=== PATIENT | male | born 1960 | race Caucasian/White ===

== ENCOUNTER 2021-04-28 14:56 | Outpatient (CLI) | payer BC, SELFPAY ==
--- NOTE | 2021-04-28 14:45 | DI.RAD_ITS ---
Exam(s) XR KNEE RT 4V AP,LAT,ALEIDA,PAT EXAM: XR KNEE RT 4V AP,LAT,ALEIDA,PAT CLINICAL HISTORY: pain. TECHNIQUE: 2D digital imaging was performed. COMPARISON: No exams were available for comparison FINDINGS: No evidence of acute fracture. Small joint effusion. There are advanced degenerative changes in med ial compartment with [id number] apposition of the medial compartment on the weight-bearing view. A lso marginal osteophytes. Moderate degenerative changes in the lateral compartment. Advanced degene rative changes in the patellofemoral compartment. 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 The largest of these calcifications measures approximately 1.7 by 1.3 cm. IMPRESSION: DATA REPOSITORY: RADIATION DOSE DELIVERED:
--- NOTE | 2021-04-28 14:45 | DI.RAD_ITS ---
Exam(s) XR HIP RT COMPLETE AP PELVIS EXAM: XR HIP RT COMPLETE AP PELVIS CLINICAL HISTORY: pain in knee. TECHNIQUE: 2D digital imaging was performed. COMPARISON: No exams were available for comparison FINDINGS: No evidence pelvic hip fracture. No significant hip joint space narrowing. No osseous lesions. IMPRESSION: DATA REPOSITORY: RADIATION DOSE DELIVERED:
== END 2021-04-28 14:57 | disposition home or self-care (01) ==
LOC: DIORS 14:57
PROVIDERS: Visit Provider Physician Assistant Surgical
DX: M25.561 Pain in right knee (principal); M25.461 Effusion, right knee; M17.11 Unilateral primary osteoarthritis, right knee; M71.21 Synovial cyst of popliteal space [Baker], right knee; M25.551 Pain in right hip
CPT/HCPCS: 73502; 73564

== ENCOUNTER 2021-06-20 11:32 | Outpatient (CLI) | payer BC, SELFPAY ==
--- NOTE | 2021-06-20 11:00 | DI.RAD_ITS ---
Exam(s) XR KNEE RT 1V EXAM: XR KNEE RT 1V CLINICAL HISTORY: right knee DJD. TECHNIQUE: 2D digital imaging was performed of the right knee. One views obtained. Lateral views w ere obtained. COMPARISON: CR XR KNEE RT 4V AP,LAT,ALEIDA,PAT from 04/28/2021 CR XR KNEE RT 4V AP,LAT,ALEIDA,PAT from 04/28/2021 FINDINGS: This is a limited examination with a single lateral view with a template bowel. BONES: Alignment of the knee is anatomic on the single lateral image. No bony destructive lesion is seen. Enthesophyte is seen at the inferior patella. JOINTS: Degenerative changes are seen in the patellofemoral joint with joint space narrowing and talia articular spurring present. There again seen multiple calcific densities in the soft tissues posteri or to the knee. SOFT TISSUE: Normal. IMPRESSION: Stable appearance of the knee on the single lateral image. DATA REPOSITORY: RADIATION DOSE DELIVERED:
--- NOTE | 2021-06-20 11:00 | DI.RAD_ITS ---
Exam(s) XR STANDING ALIGNMENT EXAM: XR STANDING ALIGNMENT CLINICAL HISTORY: right knee DJD. TECHNIQUE: 2D digital imaging was performed. COMPARISON: CR XR KNEE RT 4V AP,LAT,ALEIDA,PAT from 04/28/2021 CR XR KNEE RT 4V AP,LAT,ALEIDA,PAT from 04/28/2021 FINDINGS: BONES: There are degenerative changes seen in the hips bilaterally. Moderately severe degenerative c hanges are seen in the right knee with joint space narrowing and periarticular spurring. The finding s are most marked in the medial femoral tibial joint space. There again seen osseous densities poste rior to the knee. These may represent loose bodies. There are mild degenerative changes seen in the left knee with joint space narrowing and periarticular spurring present. There are few tiny densiti es seen posterior to the medial joint space of the left knee. Again these may be loose bodies. The ankles are well maintained. No significant leg length discrepancy is seen. SOFT TISSUE: Normal. IMPRESSION: Degenerative changes in the knees bilaterally, right greater than left. DATA REPOSITORY: RADIATION DOSE DELIVERED:
== END 2021-06-20 11:33 | disposition home or self-care (01) ==
LOC: DIORS 11:32
PROVIDERS: Visit Provider Physician Assistant
DX: M17.11 Unilateral primary osteoarthritis, right knee (principal)
CPT/HCPCS: 73560; 77073

== ENCOUNTER 2021-06-30 03:59 | Outpatient (CLI) | payer BC, SELFPAY ==
[2021-07-01 20:46] LABS: COVID-19 RT-PCR UVMMC Result Negative (Negative)
== END 2021-06-30 04:00 | disposition home or self-care (01) ==
LOC: LBO 03:59
PROVIDERS: PCP Internal Medicine; Visit Provider Student in an Organized Health Care Education/Training Program
DX: Z20.822 Contact with and (suspected) exposure to COVID-19 (principal)
CPT/HCPCS: 87635; U0003

== ENCOUNTER 2021-06-30 04:04 | Outpatient (CLI) | payer BC, SELFPAY ==
[2021-06-30 11:18] LABS: HGB 15.8 g/dL (13.5-17.5); MCH 29.7 pg (27.0-33.0); MCHC 34.3 % (32.0-36.0); MCV 86.5 fL (80-95); MPV 10.7 fL (8.0-11.0); Platelet Count 175 10^3/uL (130-400); RBC 5.32 10^6/uL (4.36-5.78); RDW 12.8 % (11.8-14.1); RDW-SD 39.9 fL; WBC 8.07 10^3/uL (4.4-10.8)
[2021-06-30 11:48] LABS: Anion Gap 7.5 mmol/L (3-11); BUN 24 mg/dL (7-18); CO2 29.5 mmol/L (21.0-32.0); CREATININE 0.8 mg/dL (0.70-1.30); Calcium 9.2 mg/dL (8.5-10.1); Chloride 102 mmol/L (98-107); Glucose 146 mg/dL (74-106); Potassium 3.8 mmol/L (3.5-5.1); Sodium 139 mmol/L (136-145)
[2021-06-30 11:50] LABS: Hemoglobin A1C 6.2 % (<5.7)
== END 2021-06-30 04:05 | disposition home or self-care (01) ==
LOC: LBO 04:04
PROVIDERS: PCP Internal Medicine; Visit Provider Student in an Organized Health Care Education/Training Program
DX: M17.11 Unilateral primary osteoarthritis, right knee (principal); Z01.818 Encounter for other preprocedural examination
CPT/HCPCS: 36415; 80048; 85027; 83036

== ENCOUNTER 2021-07-02 07:05 | Day surgery (SDC) | payer BC, SELFPAY ==
[2021-07-02] VITALS (9 sets, daily range): BP systolic 133–154; BP diastolic 71–99; PULSE 56–69; RESP 16–25; TEMP 36–36.8; O2SAT 93–97; BMI 39.2
--- NOTE | 2021-07-02 06:33 | W.PM.DSUDISC ---
Discharge Plan Disposition Patient Disposition: HOME Condition: Stable Discharge Details Reason For Visit: Right TKA Attending Provider: Chivo Heard Primary Care Provider: Ju Browning Home Meds and New Rx's Prescriptions: New celecoxib [Celebrex] 200 mg capsule 200 mg PO BID Qty: 60 RF: 0 gabapentin 300 mg capsule 300 mg PO QHS Qty: 14 RF: 0 acetaminophen 500 mg capsule 1,000 mg PO Q8H PRN PRNQty: 90 RF: 0 pantoprazole [Protonix] 40 mg tablet,delayed release (DR/EC) 40 mg PO DAILY Qty: 30 RF: 0 aspirin 81 mg tablet,delayed release (DR/EC) 81 mg PO BID Qty: 60 RF: 0 Continued amlodipine 10 mg tablet 10 mg PO DAILY RF: 0 chlorthalidone 25 mg tablet 25 mg PO DAILY RF: 0 escitalopram oxalate 20 mg tablet 20 mg PO DAILY RF: 0 naltrexone 50 mg tablet 50 mg PO DAILY PRNRF: 0 simvastatin 20 mg tablet 20 mg PO QPM RF: 0 trazodone 50 mg tablet 50 mg PO DAILY RF: 0 Trulicity 0.75 mg/0.5 mL pen injector 0.75 mg subcut QWEEK RF: 0 Discharge Instructions Additional Instructions: Total Knee Discharge Instructions Activity: The most important activity is to walk. You should try to take short walks a few times a day. It is important that when resting you work on keeping the knee straight. Avoid putting a pillow behind the knee as this will encourage flexion. Work on range of motion exercises as provided by Physical Therapy. If you have the [employer] bike coming, this will be your primary tool for exercise after the knee replacement. You should use it and follow the directions for the knee. Utilize the other exercises sparingly based on your symptoms. - Start outpatient physical therapy within 2 weeks. - You should wear the ANTONIA hose on both legs for 2 weeks. You may remove these at night. You may also use any compression sock in place of the ANTONIA hose. - Utilize [employer] to review exercises, see videos on exercises and obtain basic information pertaining to your surgery and your recovery. Dressing: Remove the Anoop wrap by 2 days after your surgery and put on the ANTONIA stocking given to you from the hospital. Keep the surgical dressing (underneath the ANOOP wrap) in place for at least one week. After the first week it may be removed and replaced with light gauze and tape or nothing. The wound and dressing may get wet after 3 days but avoid soaking the dressing or otherwise it will need to be changed. Many people prefer covering the dressing with cling wrap (saran wrap) to minimize it from getting soaked. If it gets wet, just pat dry. If it starts to peel off then it will need to be changed. Medications: - You should take Tylenol and anti-inflammatory Celebrex as your primary pain control medications. If the Celebrex is too expensive or not covered, please call the office for another alternative (Advil/Ibuprofen or Naproxen/Aleve) - You have been prescribed a stronger pain medication Oxycodone for breakthrough pain, take as needed as prescribed. - You have also been prescribed a stomach acid reduction agent Pantoprozole to help reduce stomach acid and reflux. - You have been prescribed Gabapentin to take at night for restlessness and nerve pain. - You will be taking Aspirin 81mg twice a day for DVT prevention unless instructed otherwise. - If you have constipation you should take Colace or Miralax (both [id number]). It takes most people 3-4 days to have a bowel movement. Follow-up: 2 weeks If you have any acute concerns or questions, please do not hesitate to contact the office at [phone]. You may contact Dr. Heard with any questions after hours through the hospital at [phone] or on his cell phone at [phone]. Referrals: Chivo Heard MD [ [facility] STAFF PHYSICIAN] - Equipment/Supplies: Walker Activity:: Activity as Tolerated Remove Dressings/Wound Care:: Do Not Remove Shower/Bathe:: 72 hours Diet:: As Tolerated Discharge Orders Discharge Orders: Discharge Order (Routine); Ordered 07/02/21 Ordered By: Dulce Aldrich DS: Diagnosis Discharge Diagnosis (1) Osteoarthritis of right knee: Status: Chronic
[2021-07-02] MEDS: Acetaminophen 500 MG TAB 1000 MG PO (08:47)
[2021-07-02] MEDS: Gabapentin 300 MG CAP PO (08:48)
[2021-07-02] MEDS: Celecoxib 200 MG CAP 400 MG PO (08:48)
[2021-07-02] MEDS: Lactated Ringers 1,000 ML 80 ML IV (09:00)
--- NOTE | 2021-07-02 09:14 | W.ANESPRE ---
General Info Date of Service Date Performed: 07/02/21 Height: 5 ft 11.75 in Weight: 130.181 kg Body Mass Index (BMI): 39.2 Surgical Procedure: Operation Date: 07/02/21 09:55 Proposed Procedures Side Surgeon p (R) Knee Total Arthroplasty Right Chivo Heard MD Meds Allergies and Home Medications Allergies Allergy/AdvReac Type Severity Reaction Status Date / Time No Known Allergies Allergy Verified 07/02/21 08:09 Home Medication Medication Instructions Recorded amlodipine 10 mg tablet 10 mg PO DAILY 06/20/21 chlorthalidone 25 mg tablet 25 mg PO DAILY 06/20/21 dulaglutide 0.75 mg/0.5 mL 0.75 mg SUBCUT QWEEK 06/20/21 subcutaneous pen injector escitalopram oxalate 20 mg tablet 20 mg PO DAILY 06/20/21 naltrexone 50 mg tablet 50 mg PO DAILY PRN 06/20/21 simvastatin 20 mg tablet 20 mg PO QPM 06/20/21 trazodone 50 mg tablet 50 mg PO DAILY 06/20/21 acetaminophen 1,000 mg PO Q8H PRN PRN #90 cap 07/02/21 aspirin 81 mg PO BID #60 tab 07/02/21 celecoxib [Celebrex] 200 mg PO BID #60 cap 07/02/21 gabapentin 300 mg PO QHS #14 cap 07/02/21 pantoprazole [Protonix] 40 mg PO DAILY #30 tab 07/02/21 Current Visit Medications: Current Medications Generic Name Dose Route Start Last Admin Trade Name Freq PRN Reason Stop Dose Admin Acetaminophen 1,000 mg 07/02/21 06:00 07/02/21 08:47 Acetaminophen 500 Mg Tab PO 07/02/21 16:00 1,000 mg PREOP GIANA Administration Acetaminophen 1,000 mg 07/02/21 08:30 Acetaminophen 500 Mg Tab PO TID GIANA Aspirin 81 mg 07/02/21 20:00 Aspirin E.C. 81 Mg Tabec PO BID GIANA Celecoxib 400 mg 07/02/21 06:00 07/02/21 08:48 Celecoxib 200 Mg Cap PO 07/02/21 16:00 400 mg PREOP GIANA Administration Celecoxib 200 mg 07/02/21 08:30 Celecoxib 200 Mg Cap PO BID GIANA Docusate Sodium 100 mg 07/02/21 06:31 Docusate Sodium 100 Mg Cap PO BID PRN PRN Constipation Gabapentin 300 mg 07/02/21 06:00 07/02/21 08:48 Gabapentin 300 Mg Cap PO 07/02/21 16:00 300 mg PREOP GIANA Administration Gabapentin 300 mg 07/02/21 22:00 Gabapentin 300 Mg Cap PO HS GIANA Hydromorphone HCl 0.5 mg 07/02/21 06:31 Hydromorphone 2 Mg/Ml Vial IVP Q2H PRN PRN Tranexamic Acid 1,000 mg/ 60 mls @ 360 mls/hr 07/02/21 06:00 Sodium Chloride IVPB 07/02/21 16:00 PREOP GIANA Tranexamic Acid 1,000 mg/ 60 mls @ 360 mls/hr 07/02/21 06:00 Sodium Chloride IVPB 07/02/21 16:00 DIRECTED GIANA Cefazolin Sodium 3,000 mg/ 100 mls @ 200 mls/hr 07/02/21 06:00 Sodium Chloride IVPB 07/02/21 16:00 PREOP GIANA Ringer's Solution 1,000 mls @ 80 mls/hr 07/02/21 06:00 07/02/21 09:00 IV 07/04/21 23:59 80 mls/hr INFUSION GIANA Administration Cefazolin Sodium/Dextrose 1 gm in 50 mls @ 100 mls/hr 07/02/21 16:00 Ancef Duplex IVPB 07/03/21 08:29 Q8H GIANA IV Miscellaneous Supplies 1 each 07/02/21 06:00 Iv Access IV 07/04/21 23:59 DIRECTED GIANA Ondansetron HCl 4 mg 07/02/21 06:31 Ondansetron 4 Mg/2 Ml Vial IVP Q6H PRN PRN Nausea Oxycodone HCl 0 mg 07/02/21 06:31 Oxycodone 5 Mg Tab PO Q3H PRN PRN Pain Pantoprazole Sodium 40 mg 07/03/21 07:30 Pantoprazole 40 Mg Tabcr PO DAILY@0730 GIANA Sodium Chloride 0 ml 07/02/21 06:00 Normal Saline Flush 10 Ml Syr IV 07/04/21 23:59 PRN PRN Sodium Chloride 0 ml 07/02/21 06:00 Normal Saline 10 Ml Vial IJ 07/04/21 23:59 DIRECTED PRN Sterile Water 0 ml 07/02/21 06:00 Water,Injection,Sterile 10 Ml Vial IJ 07/04/21 23:59 DIRECTED PRN PFS Active Problems Active Problems: Problem Status Onset Code Anxiety F41.9 Hypertension I10 Hyperlipidemia E78.5 Diabetes mellitus E11.9 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 Osteoarthritis of right knee M17.11 Tobacco Smoking/Tobacco Use Status: Never Alcohol Alcohol Intake: current Alcohol intake frequency: a few times a month Alcohol type: beer Details: intermittent - none for several weeks Substance Use Substance use: Never Substance use type: does not use Vital Signs and Lab Results Vital Signs Most Recent Vital Signs in EMR: Most Recent Vital Signs Temp Pulse Resp BP Pulse Ox 36.6 C 67 16 154/96 H 95 07/02/21 08:18 07/02/21 08:18 07/02/21 08:18 07/02/21 08:18 07/02/21 08:18 Point of Care Results Point of Care Results: Finger Stick Blood Glucose 150 07/02/21 08:47 Lab Results Blood Type / Crossmatch: No Data to Display Complete Blood Count: White Blood Count 8.07 10^3/uL (4.4-10.8) 06/30/21 10:58 06/30/21 Red Blood Count 5.32 10^6/uL (4.36-5.78) 06/30/21 10:58 06/30/21 Hemoglobin 15.8 g/dL (13.5-17.5) 06/30/21 10:58 06/30/21 Hematocrit 46.0 % (40.0-50.0) 06/30/21 10:58 06/30/21 Platelet Count 175 10^3/uL (130-400) 06/30/21 10:58 06/30/21 Complete Metabolic Panel: Sodium Level 139 mmol/L (136-145) 06/30/21 10:58 06/30/21 Potassium Level 3.8 mmol/L (3.5-5.1) 06/30/21 10:58 06/30/21 Chloride Level 102 mmol/L (98-107) 06/30/21 10:58 06/30/21 Carbon Dioxide Level 29.5 mmol/L (21.0-32.0) 06/30/21 10:58 06/30/21 Blood Urea Nitrogen 24 mg/dL (7-18) H 12/27/21 10:58 06/30/21 Creatinine 0.8 mg/dL (0.70-1.30) 06/30/21 10:58 06/30/21 Estimated GFR/1.73 m2 >= 60.00 (mL/min/1.73m2) 06/30/21 10:58 06/30/21 Calcium Level 9.2 mg/dL (8.5-10.1) 06/30/21 10:58 06/30/21 Glucose Level 146 mg/dL (74-106) H 06/30/21 10:58 06/30/21 Hemoglobin A1c 6.2 % (<5.7) H 06/30/21 10:58 06/30/21 Liver Function Panel: No Data to Display Coagulation Panel: No Data to Display Cardiac Panel: No Data to Display Arterial Blood Gas: No Data to Display Venous Blood Gas: No Data to Display Pancreas Panel: No Data to Display Thyroid Panel: No Data to Display Infectious Disease: Coronavirus (COVID-19)(PCR) Negative (Negative) 06/30/21 12:10 06/30/21 Blood Cultures: No Data to Display Toxicology Panel: No Data to Display Anesthesia Assessment and Plan Anesthesia History Personal History: No History of Anesthesia Complications Family History: No Family History of Anesthesia Complications Exercise Tolerance Exercise Tolerance: Metabolic Equivalents>4 Pertinent Negatives Pertinent Negatives: No Symptoms of GERD, No Major Cardiovascular Symptoms or Complaints, No Major Pulmonary Symptoms or Complaints and No History of CVA/TIA Cardiac & Pulmonary Exam Cardiac Exam: Normal S1/S2 Heart Sounds Pulmonary Exam: Clear Bilateral Breath Sounds Implantable Cardiac Device Does patient have a Pacemaker or an ICD?: No Airway Exam Known Difficult Airway: No Mallampati Class: 3 Mouth Opening: Normal (> 3cm) Thyromental Distance: Greater than 3 cm Neck Range of Motion: Full ROM Neck Circumference: Normal Teeth Condition: Normal Dentition ASA Classification ASA Score: ASA 3 Emergency Case?: No NPO Status NPO Status: NPO Clears >2 hours, Solids >8 hours Anesthesia Plan Resuscitation Status: Full Code Anesthesia Technique: Spinal Anesthesia Airway Planned: Natural Airway Pain Management: Surgeon and patient request nerve block Monitors Used: Standard Monitors
[2021-07-02] MEDS: ceFAZolin 3,000 MG in Normal Saline 100 ML 200 MG IVPB (09:47)
--- NOTE | 2021-07-02 10:18 | W.ANESNERVE ---
Nerve Block Single Injection Procedure Date and Time Date Performed: 07/02/21 Procedure Start: 09:34 Location Where Procedure Performed Procedure Location: Day Surgery Unit Reason Performed: Postoperative Analgesia Requesting Provider: Chivo Heard Timeout Performed Timeout Performed: Yes Monitoring Used ECG, Blood Pressure, SpO2 and See EMR for corresponding vital signs Sterility Sterility: Hand Hygiene, Surgical Cap, Surgical Mask, Sterile Gloves, Eye Protection and Chlorhexidine Sedation Given During Procedure Sedation Given (Indicate Dose Given): Versed IV Dose:: 2 mg Patient Mental Status Patient Mental Status: Sedate with meaningful communication Nerve Block 1st Nerve Block: Laterality: Right Block Type: Adductor Canal Needle / Catheter Used: 100mm SonoPlex II Local Anesthetic Bolus (Indicate Dose Given): Lidocaine used for local infiltration of skin, Injected in 3-5ml increments after negative blood aspiration and Bupivacaine 0.25% Dose:: 30 ml Additives (Indicate Dose Given): None Ultrasound: Sterile probe cover and gel used Ultrasound Image Saved?: Yes Nerve Stimulator: Not Used Paresthesia: None Procedure Tolerated: No Complications Procedure Outcome: Successful Performed By: Micheline Awad
[2021-07-02] MEDS: Ketorolac 30 MG/ML VIAL (10:39)
[2021-07-02] MEDS: Bupivacaine 0.25% Pres-Free 30 ML VIAL (10:39)
[2021-07-02] MEDS: Normal Saline 50 ML (10:39)
[2021-07-02] MEDS: fentaNYL 100 MCG/2 ML VIAL IVP (11:57)
--- NOTE | 2021-07-02 12:23 | W.ANESPOSTOP ---
Postoperative Evaluation Date, Time and Location Date Performed: 07/02/21 Time Performed: 12:24 Patient Location: PACU Vital Signs Most Recent Imported Vital Signs: Most Recent Vital Signs Temp Pulse Resp BP Pulse Ox 36.4 C L 56 L 17 133/90 93 07/02/21 12:12 07/02/21 12:12 07/02/21 12:12 07/02/21 12:12 07/02/21 12:12 Pain Score Most Recent Pain Score: Most Recent Pain Score Pain Level 3 07/02/21 12:12 Assessment Mental Status: Awake (Alert & Oriented to Patient Baseline) Airway and Respiratory Function: Patent airway with normal (patient baseline) respiratory exam Cardiovascular Function: Hemodynamically Stable Hydration Status: Adequately Hydrated Nausea & Vomiting: No Nausea or Vomiting Pain: Pt. Denies Any Pain Peripheral Nerve Block: Regional nerve block not resolved at time of post operative discharge (Adductor canal still in place and appropriate )
--- NOTE | 2021-07-02 13:18 | W.PM.OP ---
Date of service: 07/02/21 Time of Service: 11:02 Operative Note Operative Note DATE OF PROCEDURE: 07/01/21 PRE-OP DIAGNOSIS: Right Knee Osteoarthritis POST-OP DIAGNOSIS: same PROCEDURE: Right Total Knee Replacement SURGEON: Chivo Heard VENTILATION EQUIPMENT TENDER: Dulce Aldrich ANESTHESIA TYPE: Spinal Refer to Anesthesia Record ESTIMATED BLOOD LOSS: 100 PATHOLOGY: none sent TOURNIQUET TIME: 0 COMPLICATIONS: None Patient was transported to: PACU Patient's condition: stable Implants: 1. Depuy Attune Cementless Cruciate Retaining Femoral Component, Size 8 2. Depuy Attune Cementless Rotating Platform Tibial Component, Size 8 3. Depuy Attune 8x6 CR/RP Poly 4. Depuy Attune Patellar Component, Size 41 Indications: I have seen Mitchell in clinic for symptoms of knee arthritis, confirmed with radiographic findings. He has exhausted nonoperative methods and was having significant limitations in daily function and desired better function and less pain. I discussed the technical details of a knee replacement. I explained the risks of the procedure to include, but not limited to, bleeding, infection, pain, stiffness, fracture, damage to nerves and vessels, damage to muscles and tendons, loosening, need for repeat procedure, blood clot and cardiopulmonary demise. Despite these risks, Mitchell elected to proceed. Findings: There was significant signs of arthritis throughout the knee with large osteophytes. Procedure Description: Mitchell was greeted in the preoperative holding area where the correct side was identified and marked. The consent was reviewed with the patient and signed. The history and physical was updated. All questions were answered. Preoperative medications were administered: Acetaminophen 1000mg, Celebrex 400mg, and Gabapentin 300mg. An adductor canal block was then administered by the anesthesia team in the PACU. Eder was taken back to the operating room. A spinal anesthestic was then administered. The patient was placed into the supine position on the operating room table. A nonsterile tourniquet was placed high onto the leg but only used for cementing. Posts were placed for positioning during the procedure. All bony prominences were well padded. Prophylactic antibiotics in the form of Cefazolin were administered. 1g of Tranxemic Acid was given intravenously within 30 minutes of incision. The right leg was then prepped with Chloraprep and draped in a standard fashion with impervious stockinette. A second prep with Chloraprep was performed prior to application of Iodine impregnated skin protection. A timeout to confirm correct identity, side and site, procedure, allergies, anesthesia, and medical concerns was performed. With the knee in some flexion, a midline incision was made overlying the knee. Full thickness skin flaps were raised once the extensor mechanism was encountered. These were raised medially and laterally. Any bleeding was controlled with electrocautery. Once the extensor mechanism was fully exposed, a medial parapatellar arthrotomy was performed in a flexed position. All bleeding from the arthrotomy and the geniculate arteries was coagulated. A medial subperiosteal peel was performed with electrocautery to the midcoronal plane. Due to the significant varus deformity the entire medial tibial plateau was exposed. The fat pad was removed while keeping the patellar tendon protected. The anterior distal femur synovium was removed for later visualization. The ACL and PCL were resected and the anterior horn of the lateral meniscus was transected. The knee was then flexed with the patella everted. Large osteophytes from the tibia were removed. Large osteophytes from the femur were removed. Using a step drill, and based on preoperative templating, the femoral canal was entered. This was done with a step drill without any difficulty. The intramedullary distal femoral cut guide was inserted, set to a 5 degree valgus cut and 9mm cut thickness. The distal femoral cut guide was then held in position and pinned. With the soft tissues protected, the distal cut was performed. This was passed over a few times to ensure a planar cut. I then turned attention to the tibia. The extramedullary guide was placed onto the leg. The distal aspect was slid medial to adjust for position of center of ankle and stay in line with shaft of the tibia. Approximately 3-5 degrees of posterior slope was kept in the proximal cutting guide. The center of the guide was aligned with the PCL. The stylus was used to assess cut thickness. The medial side, most involved side, was set for a 4mm cut, corresponding to 9mm laterally. This was then held in position and pinned into place with 2 additional pins and a cross pin for stability. The medial and lateral collateral ligaments were protected and the cut was performed. With this completed, it was assessed and noted to be of appropriate dimensions. The guide was removed. A spacer block was inserted and the knee was brought into extension. The 6mm spacer block provided full extension, without hyperextension and with stability of both the medial and lateral collateral ligaments was assessed. The pins from the femur and the tibia were then removed. The distal femur was then sized. The anterior stylus was placed onto the lateral ridge of the anterior femur. This indicated a size 8 femur. The external rotation of the guide was adjusted to 3 degrees to match the epicondylar axis, perpendicular to [place]?s line. The 4-in-1 cutting guide was the placed. The posterior medial femur cut was evaluated and appeared of good thickness. The spacer block was inserted underneath the cutting guide and stability was confirmed in 90 degrees of flexion. An archie wing was used to confirm appropriate position of the anterior cut to avoid notching. This cutting guide was ensured to be flush on the cut surface and then pinned into place with headed pins. While protecting the soft tissues, quad tendon, and collateral ligaments, the anterior and posterior cuts were performed with a saw. The central two pins were removed and the posterior and anterior chamfers were cut next. The notch-cutting guide was placed. This was pinned to lateralize the femoral component as much as possible while keeping it flush on the cut surface. This was then pinned into position. A reciprocating saw was used to make the notch cut. A rasp smoothed the cut surfaces. The medial and lateral menisci were removed. A trial femoral component was then inserted, impacted down to the cut surfaces, and the lug holes were drilled. A provisional trial tibial component was placed and the knee was brought through range of motion. There was noted to be excellent extension and flexion. There was no significant instability. The patella was tracking without thumbs. A size 6mm polyethylene component provided the best range of motion and stability with less than 2mm gapping with medial and lateral stress and full extension without significant hyperextension. The tibial cut surface was fully exposed. The tibia was then sized as a 8. The tibia had been previously marked during trialing to correspond to the center of the tibial component to help with rotation. The trial was aligned to this david, approximately rotated to the medial 1/3rd of the tibial tubercle. The trial was pinned into place. The tibia was prepared with a reamer and a keel punch and lug holes. The knee was then brought into extension and the patella was measured as 31mm. Using the patellar clamp and cut guide, this was resected to a flat surface with at least 13mm of thickness remaining. The size 41 patella fit the best. This was oriented and then clamped into position. The lugs were drilled. The trial components were removed. The final components were opened on the back table. The periosteal and capsular tissues, especially posteriorly, around the knee were then systematically injected with a periarticular cocktail consisting of 50cc 0.25% Marcaine, 30mg Ketorolac, 20cc of Exparal and 50cc of injectable saline. The knee was thoroughly irrigated with a pulse lavage and dried. Irrisept was also used to irrigate the tissues. On the back table, with the implants opened, the cement was mixed. One batch of high viscosity cement was prepared with vacuum assistance. After the cement was ready a small amount was placed on the cut surface of the patella and the patellar button was clamped into position and held. While the cement was hardening, the cementless knee components were placed. Starting with the tibial component, the tibia was subluxed anteriorly and the lug holes of the component were lined up. The tibia was then impacted with an impactor and mallet until the tibial component was in contact with the tibia. The final polyethylene component was inserted. Then, the femoral component was inserted. The lug holes were aligned and the component was impacted into position. The knee was irrigated with Irrisept chlorhexadine solution. This was allowed to sit in the knee for 3 minutes. After the cement had finally cured, approximately 15min, the clamp was removed from the patella and the knee was taken through range of motion. The patella was tracking with a no-thumbs technique. The capsule was then reapproximated with a No. 1 Vicryl at multiple locations. The capsule was finally closed with a No. 2 Stratafix, barbed suture. The second dosing of 1g TXA was started. Deep tissues were then reapproximated with 0 Vicryl and 2-0 Vicryl. The skin was closed with a running 3-0 Monocryl in a subcuticular fashion. This was reinforced with skin glue. A Mepilex silver dressing was applied along with a [id number] ANH wrap. A CryoCuff was applied. Eder was transferred to the hospital bed without difficulty an suffering no apparent complication. Eder has a good prognosis. Physical therapy will start today and without restrictions, weight-bearing as tolerated. Aspirin 81mg BID will be used for DVT prophylaxis.
--- NOTE | 2021-07-02 14:33 | PT.INIE ---
Date of service: 07/02/21 Time of Service: 14:23 PT Notes Visit Reasons: Right TKA Physical Therapy Day Surgery Initial Evaluation Date: 07/02/2021 Referring Doctor: JJ Hein PT Orders: PT CONSULT: Status post Ortho surgery Precautions: WBAT on right LE with AD. Patient Profile/Admitting Diagnosis: Mitchell is a 60-year-old male with degenerative joint disease of the right knee and is status post right total knee arthroplasty in postoperative day 0. PMHX: Unremarkable Social History/Home Situation: Lives with in a private home with 12 steps to enter with rails on both sides. Independent with all aspects of ADLs prior to surgery. Equipment Owned/DME: Front-wheeled walker Subjective: Agreeable to PT consult. Complains of mild discomfort in the back of the right knee with movement and weight bearing. Denies headache, chest pain, and dizziness throughout session. Objective: General Observation: Anoop wrap to right LE. Cryocuff to right knee. TEDS on left LE leg. Mental Status: Alert and oriented x4 Pain: 2?3/10 pain in the right popliteal area ROM: Right Lower Extremity: Hip flexion WFL. Hip abduction WFL. Knee flexion 5 degrees to 95 degrees. Knee extension -5 degrees. Ankle dorsiflexion WFL. Ankle plantarflexion WFL. Left Lower Extremity: Hip flexion WFL. Hip abduction WFL. Knee flexion WFL. Ankle dorsiflexion WFL. Ankle plantarflexion WFL. Strength: Right Lower Extremity: Hip flexors 4/5. Hip abductors 4/5. Knee flexors 3-/5. Knee extensors 3-/5. Ankle dorsiflexors 5/5. Ankle plantarflexors 5/5. Left Lower Extremity:Hip flexors 5/5. Hip abductors 5/5. Knee flexors 5/5. Knee extensors 5/5. Ankle dorsiflexors 5/5. Ankle plantarflexors 5/5. Sensation: Intact as to pain and light pressure in bilateral lower extremities Bed Mobility/Transfers: Supine to sit supervision Sit to stand contact-guard assist Stand to sit standby assist Bed to chair standby assist Gait: Instructed patient with level surface ambulation of 100 feet using front wheeled walker with step through gait pattern requiring standby assist. Reported some discomfort in the right popliteal area that did not limit ambulation distance. Denies headache, chest pain, and dizziness throughout session. No LOB. No SOB. Good quad activation on the right facilitating safe mid stance. Stairs: Instructed on safe stair negotiation technique of 4 x 6 inch steps and 6 steps 4 inch steps while holding onto bilateral rails with step to gait pattern requiring only contact-guard assist. No LOB. No SOB. No increased pain report. Balance: Static Sitting: Normal Dynamic Sitting: Normal Static Standing: Fair Dynamic Standing: Fair Special Tests: Mobility Limitations Standardized Measure [facility] AM-PAC 6 clicks Basic Mobility Inpatient Short Form: Raw Score: 21 CMS Score: 29% deficit Informed Consent/Education: Patient instructed in purpose of PT consult. Education and training on initial set of exercises that can be done at home have been completed with patient. Assessment: Eder requires the use of a front-wheeled walker for all mobility ADL performance to maximize independence and reduce fall risk. Good quad activation on the right. Patient presents with clinical signs and symptoms consistent with current/admitting diagnoses that have resulted to mobility limitations, gait instability, generalized weakness, and impairment of motor control as demonstrated by the following impairment level findings: 1. Decreased strength to right knee major muscle groups 2. Impaired standing balance 3. Limitation of joint range of motion in right knee Impairments are contributing to the following functional limitations: 1. Inability to safely ambulate without assistive device 2. Increase completion time for mobility ADL performance 3. Increased fall risk Patient is assessed as a [id number] moderate 61 complexity based on the following: History: -year-old male with impairment level findings, functional limitations, and past medical history as indicated above Examination: Demonstrable impairment in strength, balance, and mobility level with underlying impairments and functional limitations as documented above Presentation: Evolving [id number] moderate complexity Decision Making: Goals: N/A. PT evaluation and 1-2 treatment sessions only for functional mobility training using recommended AD and for HEP instruction. Plan of Care/Treatment Plan: N/A. PT evaluation and 1-2 treatment session only for functional mobility training using recommended AD and for HEP instruction. DISCHARGE RECOMMENDATIONS: Home with no services [] [] Home with services [specify] [X] Home with outpatient PT. Home when medically cleared by orthopedic surgeon. Will benefit from outpatient PT services to facilitate independent community ambulation without an assistive device. [] SNF for continued rehabilitation [] [] Group Home Care [] [] SNF versus LTC based on ability to participate and progress [] TREATMENT CODE/TIME: 46653 x 20 minutes, 06652 x 21 minutes beginning at 14:33 PM. Thank you for the opportunity to participate in the care of this patient. Tran Sheffield PT, DPT, CLT [facility] [place], [place]
== END 2021-07-02 16:00 | disposition home or self-care (01) ==
PROVIDERS: PCP Internal Medicine; Visit Provider Student in an Organized Health Care Education/Training Program
PROC: (CPT 27447; principal; 2021-07-02 09:45)
DX: M17.11 Unilateral primary osteoarthritis, right knee (principal); I10 Essential (primary) hypertension; E11.9 Type 2 diabetes mellitus without complications; E78.5 Hyperlipidemia, unspecified; F41.9 Anxiety disorder, unspecified
CPT/HCPCS: 27447; 76942; 97162; 97530; J0690; J1100; J1885; J2250; J2405; J2704; J3010

== ENCOUNTER 2021-07-17 14:44 | Outpatient (CLI) | payer BC, SELFPAY ==
--- NOTE | 2021-07-17 14:30 | DI.RAD_ITS ---
Exam(s) XR STANDING ALIGNMENT XR KNEE RT 1V EXAM: XR STANDING ALIGNMENT CLINICAL HISTORY: TKA. TECHNIQUE: 2D digital imaging was performed. Standing AP views were performed from the pelvis throu gh the ankles. COMPARISON: CR XR KNEE RT 4V AP,LAT,ALEIDA,PAT from 04/28/2021 CR XR STANDING ALIGNMENT from 06/20/2021 CR XR KNEE RT 1V from 06/20/2021 US US OR ANESTHESIA from 07/02/2021 CR XR KNEE RT 1V from 07/17/2021 FINDINGS: BONES: No acute fracture is present. No bony destructive lesion is seen. JOINTS: Knees: A right total knee prosthesis has been placed since the previous exam. Components santos ear satisfactorily aligned. Again noted are multiple rounded posterior loose bodies is could read be within a Atkinson's cyst.. Other 5th faint calcifications are seen which could be within the posterior joint space or within a Atkinson's cyst.. On the AP view of the left knee, there also rounded densitie s which could represent loose bodies. The ankle joints are unremarkable.The hip joints are not included on the exam. SOFT TISSUE: Normal. IMPRESSION: Status post placement right knee prosthesis. Continued presence posterior calcific densities, likely within a Atkinson's cyst. DATA REPOSITORY: RADIATION DOSE DELIVERED:
== END 2021-07-17 14:45 | disposition home or self-care (01) ==
LOC: DIORS 14:44
PROVIDERS: PCP Internal Medicine; Referring Provider Internal Medicine; Visit Provider Physician Assistant
DX: Z96.651 Presence of right artificial knee joint (principal)
CPT/HCPCS: 73560; 77073

== ENCOUNTER 2022-03-30 09:44 | Outpatient (CLI) | payer BC, SELFPAY ==
--- NOTE | 2022-03-30 08:45 | DI.RAD_ITS ---
Exam(s) XR KNEE RT 3V AP,LAT,ALEIDA EXAM: XR KNEE RT 3V AP,LAT,ALEIDA CLINICAL HISTORY: eval R knee pain s/p TKA. TECHNIQUE: 2D digital imaging was performed. Three views. COMPARISON: CR XR KNEE RT 1V from 07/17/2021 FINDINGS: BONES: Stable appearance of total knee prosthesis. No acute fracture is present. No bony destructive lesion is seen. JOINTS: The knee is normally aligned. No joint effusion is seen. SOFT TISSUE: Multiple calcifications are again noted in the posterior soft tissues. IMPRESSION: Posterior calcifications likely represent loose bodies within a Atkinson's cyst. Stable appearance of k nee prosthesis. DATA REPOSITORY: RADIATION DOSE DELIVERED:
== END 2022-03-30 09:45 | disposition home or self-care (01) ==
LOC: DIORS 09:44
PROVIDERS: PCP Internal Medicine; Referring Provider Internal Medicine; Visit Provider Student in an Organized Health Care Education/Training Program
DX: T84.84XA Pain due to internal orthopedic prosthetic devices, implants and grafts, initial encounter (principal); Z96.651 Presence of right artificial knee joint
CPT/HCPCS: 73562

== ENCOUNTER 2022-07-13 09:30 | Outpatient (CLI) | payer BC, SELFPAY ==
--- NOTE | 2022-07-13 15:00 | DI.RAD_ITS ---
Exam(s) XR KNEE RT 2V AP,LAT EXAM: XR KNEE RT 2V AP,LAT INDICATION: f/u R TKA. COMPARISON: CR XR KNEE RT 3V AP,LAT,ALEIDA from 03/30/2022 TECHNIQUE: 2D digital imaging was performed. Two views. FINDINGS: There has been no change in the alignment of the total knee prosthesis or appearance of the surroundi ng bone. Multiple posterior joint space loose bodies are noted. Small densities are also seen in th e suprapatellar region, unchanged. DATA REPOSITORY: RADIATION DOSE DELIVERED:
== END 2022-07-13 09:31 | disposition home or self-care (01) ==
LOC: DIORS 07-14 08:44
PROVIDERS: PCP Internal Medicine; Visit Provider Student in an Organized Health Care Education/Training Program
DX: T84.84XA Pain due to internal orthopedic prosthetic devices, implants and grafts, initial encounter (principal); Z96.651 Presence of right artificial knee joint
CPT/HCPCS: 73560

== ENCOUNTER 2022-07-28 10:54 | Day surgery (SDC) | payer BC, SELFPAY ==
[2022-07-28] VITALS (9 sets, daily range): BP systolic 116–137; BP diastolic 67–91; PULSE 57–73; RESP 15–18; TEMP 36–36.5; O2SAT 91–96; BMI 41.1
--- NOTE | 2022-07-28 07:39 | PDOC.DSDIS_ITS ---
Date of service: 07/28/22 Time of Service: 13:43 Discharge Plan Disposition Patient Disposition: Home Condition: Good Discharge Details Reason For Visit: ARTHROFIBROSIS OF RIGHT TKA Attending Provider: Chivo Heard Primary Care Provider: Ju Browning Home Meds and New Rx's Prescriptions: New oxycodone 5 mg tablet 5 mg PO Q6H PRN (Reason: severe post-operative pain) Qty: 6 0RF Rx Instructions: Take one tablet up to every 6 hours as needed for severe pain Continued amlodipine 10 mg tablet 10 mg PO DAILY chlorthalidone 25 mg tablet 25 mg PO DAILY escitalopram oxalate 20 mg tablet 20 mg PO DAILY naltrexone 50 mg tablet 50 mg PO DAILY PRN simvastatin 20 mg tablet 20 mg PO QPM trazodone 50 mg tablet 50 mg PO DAILY Trulicity 0.75 mg/0.5 mL pen injector 1.5 mg subcut QWEEK amoxicillin 500 mg tablet 2,000 mg PO ONCE Qty: 4 0RF Rx Instructions: TAKE 4 TABS WITHIN ONE HOUR OF DENTAL PROCEDURE acetaminophen 500 mg capsule 1,000 mg PO Q8H PRN PRNQty: 90 0RF Discharge Instructions Additional Instructions: Knee Manipulation Discharge Instructions Activity: You should begin moving as soon as possible. You may work on flexion but also equally maintain extension. You may bear weight as tolerated, using crutches only for support/comfort. You should apply ice to help with swelling and elevate when possible (especially in the first few days). Dressings: The knee dressing may come down after 48 hours. You may shower and get the wound wet at that time. You should keep the wounds covered with a band- aide until follow-up. Medications: - You have been prescribed a narcotic, Oxycodone, to take as needed for break through pain. - Recommend to take up to 1000mg of Acetaminophen (Tylenol) and 600mg of Ibuprofen (Advil) every 8 hours as needed. These larger strength tablets were called in but you also may use [id number]. Follow-up: 7-10 days Referrals: Chivo Heard MD [ [facility] STAFF PHYSICIAN] - Equipment/Supplies: Partial Weight Bearing Crutches Activity:: Elevate Remove Dressings/Wound Care:: 48 hours Shower/Bathe:: 48 hours Diet:: As Tolerated Discharge Orders Discharge Orders: Discharge Order (Routine); Ordered 07/28/22 Ordered By: Paulina Navarro DS: Diagnosis Discharge Diagnosis (1) Arthrofibrosis of total knee arthroplasty: Status: Acute (2) Painful total knee replacement, right: Status: Acute
[2022-07-28] MEDS: Lactated Ringers 1,000 ML 80 ML IV (11:40)
--- NOTE | 2022-07-28 12:04 | ANES.PREOP_ITS ---
General Info Date of Service Date Performed: 07/28/22 Height: 5 ft 11.75 in Weight: 136.5 kg Body Mass Index (BMI): 41.1 Surgical Procedure: Operation Date: 07/28/22 13:10 Proposed Procedure Side Surgeon p Knee Arthroscopy Synovectomy Right Chivo Heard MD Meds Allergies and Home Medications Allergies Allergy/AdvReac Type Severity Reaction Status Date / Time No Known Allergies Allergy Verified 07/28/22 11:18 Home Medication Medication Instructions Recorded amlodipine 10 mg tablet 10 mg PO DAILY 06/20/21 chlorthalidone 25 mg tablet 25 mg PO DAILY 06/20/21 escitalopram oxalate 20 mg tablet 20 mg PO DAILY 06/20/21 naltrexone 50 mg tablet 50 mg PO DAILY PRN 06/20/21 simvastatin 20 mg tablet 20 mg PO QPM 06/20/21 trazodone 50 mg tablet 50 mg PO DAILY 06/20/21 acetaminophen 500 mg capsule 1,000 mg PO Q8H PRN PRN #90 caps 07/02/21 dulaglutide 0.75 mg/0.5 mL 1.5 mg subcut QWEEK 03/30/22 [facility] amoxicillin 500 mg tablet 2,000 mg PO ONCE #4 tabs 06/10/22 Current Visit Medications: Current Medications Generic Name Dose Route Start Last Admin Trade Name Freq PRN Reason Stop Dose Admin Acetaminophen 650 mg 07/28/22 07:37 Acetaminophen 325 Mg Tab PO Q4H PRN PRN Cefazolin Sodium 3,000 mg/ 100 mls @ 200 mls/hr 07/28/22 06:00 Sodium Chloride IVPB 07/28/22 16:00 PREOP GIANA Ringer's Solution 1,000 mls @ 80 mls/hr 07/28/22 06:00 07/28/22 11:40 IV 08/26/22 23:59 80 mls/hr INFUSION GIANA Administration IV Miscellaneous Supplies 1 each 07/28/22 06:00 Iv Access IV 08/26/22 23:59 DIRECTED GIANA Sodium Chloride 0 ml 07/28/22 06:00 Normal Saline Flush 10 Ml Syr IV 08/26/22 23:59 PRN PRN Sodium Chloride 0 ml 07/28/22 06:00 Normal Saline 10 Ml Vial IJ 08/26/22 23:59 DIRECTED PRN Sterile Water 0 ml 07/28/22 06:00 Water,Injection,Sterile 10 Ml Vial IJ 08/26/22 23:59 DIRECTED PRN PFSH Active Problems Active Problems: Problem Status Onset Code Arthrofibrosis of total knee arthroplasty T84.82XA Painful total knee replacement, right T84.84XA, Z96.651 Anxiety F41.9 Hypertension I10 Hyperlipidemia E78.5 Diabetes mellitus E11.9 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 Surgical History Surgical History History of arthroplasty of right knee (07/02/21) Tobacco Smoking/Tobacco Use Status: Never Alcohol Alcohol Intake: current Alcohol intake frequency: a few times a month Alcohol type: beer Details: intermittent - none for several weeks Substance Use Substance use: Never Substance use type: does not use Vital Signs and Lab Results Vital Signs Most Recent Vital Signs in EMR: Most Recent Vital Signs Temp Pulse Resp BP Pulse Ox 36.3 C L 73 18 137/91 H 96 07/28/22 10:57 07/28/22 10:57 07/28/22 10:57 07/28/22 10:57 07/28/22 10:57 Point of Care Results Point of Care Results: Finger Stick Blood Glucose 129 07/28/22 11:15 Lab Results Blood Type / Crossmatch: No Data to Display Complete Blood Count: No Data to Display Complete Metabolic Panel: No Data to Display Liver Function Panel: No Data to Display Coagulation Panel: No Data to Display Cardiac Panel: No Data to Display Arterial Blood Gas: No Data to Display Venous Blood Gas: No Data to Display Pancreas Panel: No Data to Display Thyroid Panel: No Data to Display Infectious Disease: No Data to Display Blood Cultures: No Data to Display Toxicology Panel: No Data to Display Anesthesia Assessment and Plan Anesthesia History Personal History: No History of Anesthesia Complications Family History: No Family History of Anesthesia Complications Exercise Tolerance Exercise Tolerance: Metabolic Equivalents>4 Pertinent Negatives Pertinent Negatives: No Symptoms of GERD, No Major Cardiovascular Symptoms or Complaints and No Major Pulmonary Symptoms or Complaints Cardiac & Pulmonary Exam Cardiac Exam: Normal S1/S2 Heart Sounds Pulmonary Exam: Clear Bilateral Breath Sounds Implantable Cardiac Device Does patient have a Pacemaker or an ICD?: No Airway Exam Known Difficult Airway: No Mallampati Class: 3 Mouth Opening: Normal (> 3cm) Thyromental Distance: Greater than 3 cm Neck Range of Motion: Full ROM Neck Circumference: Normal Teeth Condition: Normal Dentition ASA Classification ASA Score: ASA 3 Emergency Case?: No NPO Status NPO Status: NPO Clears >2 hours, Solids >8 hours Anesthesia Plan Resuscitation Status: Full Code Anesthesia Technique: General Anesthesia Airway Planned: LMA Monitors Used: Standard Monitors
[2022-07-28] MEDS: ceFAZolin 3,000 MG in Normal Saline 100 ML 200 MG IVPB (12:42)
[2022-07-28] MEDS: Bupivacaine 0.5% Pres-Free 30 ML VIAL (13:01)
[2022-07-28] MEDS: EPINEPHrine 30 MG/30 ML VIAL (13:01)
--- NOTE | 2022-07-28 14:38 | W.ANESPOSTOP ---
Postoperative Evaluation Date, Time and Location Date Performed: 07/28/22 Time Performed: 14:38 Patient Location: PACU Vital Signs Most Recent Imported Vital Signs: Most Recent Vital Signs Temp Pulse Resp BP Pulse Ox 36 C L 61 18 116/86 96 07/28/22 14:18 07/28/22 14:18 07/28/22 14:18 07/28/22 14:18 07/28/22 14:18 Pain Score Most Recent Pain Score: Most Recent Pain Score Pain Level 2 07/28/22 14:18 Assessment Mental Status: Awake (Alert & Oriented to Patient Baseline) Airway and Respiratory Function: Patent airway with normal (patient baseline) respiratory exam Cardiovascular Function: Hemodynamically Stable Hydration Status: Adequately Hydrated Nausea & Vomiting: No Nausea or Vomiting Pain: Pain is tolerable per patient Peripheral Nerve Block: Patient did not receive a nerve block
--- NOTE | 2022-07-28 20:06 | W.PM.OP ---
Date of service: 07/28/22 Time of Service: 13:20 Operative Note Operative Note DATE OF PROCEDURE: 07/28/22 PRE-OP DIAGNOSIS: Arthrofibrosis and Pain of Knee Replacement - RIGHT KNEE POST-OP DIAGNOSIS: same PROCEDURE: Arthroscopic Synovectomy of 3 Compartments - RIGHT Knee SURGEON: Chivo Heard ANESTHESIA TYPE: General LMA/ETT Refer to Anesthesia Record ESTIMATED BLOOD LOSS: 0 PATHOLOGY: none sent TOURNIQUET TIME: 0 COMPLICATIONS: None Patient was transported to: PACU Patient's condition: stable Indications: I have seen Eder in clinic for symptoms of arthrofibrosis and pain of the knee following knee replacement surgery. Nonoperative measures were exhausted but disability due to lack of motion with pain persisted. I discussed knee arthroscopy with synovectomy with maniuplation with the patient. I reviewed the risks of the procedure to include, but not limited to, bleeding, infection, pain, continued stiffness, recurrence, blood clot. Despite these risks, the patient elected to proceed. Findings: Preoperative Range of Motion: Flexion: 105 Extension:10 Postoperative Range of Motion: Flexion:120 Extension:5 Procedure Description: Eder was greeted in the preoperative holding area where the correct side was identified and marked. The consent was reviewed with the patient and signed. The history and physical was updated. All questions were answered. He was taken back to the operating room. The patient was placed into the supine position on the operating room table. All bony prominences were well padded. Prophylactic antibiotics in the form of Cefazolin were administered. Preoperative range of motion was assessed as 10 - 105. The right leg was then prepped with Chloraprep and draped in a standard fashion with stockinette and extremity drape. A timeout to confirm correct identity, side and site, procedure, allergies, anesthesia, and medical concerns was performed. The leg was placed into a pneumatic leg andres, [id number]. A standard lateral portal was made at the lateral border of the patella tendon in line with the inferior pole of the patella, soft spot. The skin and deep tissue was incised sharply and the blunt trochar was inserted atraumatically. At this point had visualization of the femoral component. A superolateral portal was then established with spinal needle localization just superior and lateral to the patella. A knife was taken down through the skin and soft tissue to enter the knee joint. Starting in the superior compartment above the femoral component and anterior to the femur I released all scarring between the anterior femoral synovium and the overlying extensor mechanism. This was taken through all of any noticeable scar tissue until the superior patellar pouch was fully released and mobile. This resection was carried out mostly with electrocautery as well as shaver. Once this was released fully from lateral to medial superiorly I then continue working down the lateral gutter. All scar tissue in the lateral gutter was released so there is normal space and movement between the capsular tissues and the edge of the femoral component and femur. This was taken down through the lateral gutter such that I was able to identify the polyethylene to its posterior corner. Once again, all scar tissue in this area was resected so the polyethylene was easily visible and there is no interposed tissue in the back or the polyethylene was identified. I then continue to work anteriorly. To continue the synovectomy from the lateral compartment to the anterior compartment into the medial compartment, I placed a medial portal under spinal needle localization. Once this was in place it became another working portal and I continued the synovectomy through the anterior compartment to the medial compartment. Once again, I freed up the medial gutter so I was able to visualize the polyethylene from the anterior posterior margins. There is no interposed tissue after full synovectomy was performed. Adhesions between the capsule and the femur were released. This was continued up the medial gutter until it met up with the releases performed previously in the superior compartment. Any remnant scar tissue from around the patella was then removed with a shaver and electrocautery. The arthroscope was brought back into the suprapatellar pouch and the leg was in full extension. The knee was thoroughly irrigated with the arthroscopic fluid on high flow and pressure. Inflow was stopped and excess fluid was removed. The leg was removed from the spider leg andres and range of motion was assessed as 5-120. The wounds were closed with 4-0 Nylon. 0.25% bupivacaine was injected around the portal sites and into the knee. The wounds were dressed with Xeroform, 4x4 gauze, ABD pad, Kerlix and an ANH wrap. A cryo-cuff was applied. The patient tolerated the procedure well and was returned to the Same Day Surgery area in a stable condition suffering no known complication..
== END 2022-07-28 15:26 | disposition home or self-care (01) ==
PROVIDERS: PCP Internal Medicine; Visit Provider Student in an Organized Health Care Education/Training Program
PROC: (CPT 29870; principal; 2022-07-28 13:00)
DX: T84.82XA Fibrosis due to internal orthopedic prosthetic devices, implants and grafts, initial encounter (principal); T84.84XA Pain due to internal orthopedic prosthetic devices, implants and grafts, initial encounter; Z96.651 Presence of right artificial knee joint
CPT/HCPCS: 29876; J0690; J1100; J1885; J2001; J2405; J2704; J3010

== ENCOUNTER → 2024-12-13 09:55 | Outpatient (BNVA) | payer MEDICARE, BC, SELFPAY | PROVIDERS: PCP Internal Medicine; Referring Provider Internal Medicine; Visit Provider Podiatrist | DX: L60.3 Nail dystrophy (principal); B35.1 Tinea unguium; E11.42 Type 2 diabetes mellitus with diabetic polyneuropathy; I87.2 Venous insufficiency (chronic) (peripheral); L65.9 Nonscarring hair loss, unspecified; I83.93 Asymptomatic varicose veins of bilateral lower extremities; R60.0 Localized edema; L60.2 Onychogryphosis; L85.8 Other specified epidermal thickening; R23.8 Other skin changes | CPT/HCPCS: 11055; 11721 ==

== ENCOUNTER → 2025-04-23 07:59 | Outpatient (BNVA) | payer MEDICARE, BC, SELFPAY | PROVIDERS: PCP Internal Medicine; Referring Provider Internal Medicine; Visit Provider Podiatrist | DX: L60.3 Nail dystrophy (principal); B35.1 Tinea unguium; E11.42 Type 2 diabetes mellitus with diabetic polyneuropathy; I87.2 Venous insufficiency (chronic) (peripheral); M79.672 Pain in left foot; L65.9 Nonscarring hair loss, unspecified; I83.93 Asymptomatic varicose veins of bilateral lower extremities; R60.0 Localized edema; R23.4 Changes in skin texture; L53.8 Other specified erythematous conditions; L60.2 Onychogryphosis; L85.8 Other specified epidermal thickening | CPT/HCPCS: 11721 ==